=== PATIENT | female | born 1990 | race Caucasian/White ===

== ENCOUNTER 2024-04-02 05:59 | Day surgery (SDC) | payer OTHER ==
[~2024-04-02] VITALS: Ht 162.6 cm; Wt 55.3 kg
[2024-04-02] MEDS ORDERED: LR 1,000 ML IV SCH ×2 (06:15→08:35)
[2024-04-02 06:55] LABS: HEMATOCRIT 41.7 % (36.0-47.0); HEMOGLOBIN 14.1 g/dl (12.0-15.5); MEAN CORPUSCULAR HEMOGLOBIN 31.5 pg (27.0-33.0); MEAN CORPUSCULAR HGB CONC 33.8 g/dl (32.0-36.5); MEAN CORPUSCULAR VOLUME 93.1 fl (80.0-96.0); PLATELET COUNT, AUTOMATED 231 10^3/uL (150-450); RED BLOOD COUNT 4.48 10^6/uL (4.00-5.40); WHITE BLOOD COUNT 4.8 10^3/uL (4.0-10.0)
[2024-04-02] MEDS ORDERED: MIDAZOLAM INJ 2MG/2ML VIAL As Ordered ONE (06:59)
[2024-04-02] MEDS ORDERED: fentaNYL 100 MCG/2 ML INJECTION As Ordered ONE (07:03)
[2024-04-02] MEDS ORDERED: ROCURONIUM BROMIDE 50MG/5ML VIAL As Ordered ONE (07:08)
[2024-04-02] MEDS: SCOPOLAMINE 1MG TRANSDERMAL PATCH TOP ONE (07:21)
[2024-04-02] MEDS ORDERED: ACETAMINOPHEN 1000MG 100ML IV BAG As Ordered ONE (07:44)
[2024-04-02] MEDS ORDERED: SUGAMMADEX SODIUM 500 MG/5 ML VIAL (BRIDION) As Ordered ONE (07:50)
[2024-04-02] MEDS ORDERED: ONDANSETRON 4MG 2ML VIAL As Ordered ONE (07:50)
[2024-04-02] MEDS ORDERED: propofoL 200 MG/20 ML VIAL As Ordered ONE (07:50)
[2024-04-02] MEDS ORDERED: KETOROLAC 60MG 2ML VIAL As Ordered ONE (07:50)
[2024-04-02] MEDS ORDERED: ONDANSETRON 4MG 2ML VIAL IV PRN (08:35)
[2024-04-02] MEDS ORDERED: HYDROMORPHONE HCL 0.5 MG/ 0.5 ML SYRINGE IV PRN (08:35)
[2024-04-02] MEDS ORDERED: fentaNYL 100 MCG/2 ML INJECTION IV PRN (08:35)
[2024-04-02] MEDS: oxyCODONE 5MG TAB PO PRN (09:06)
[2024-04-02 10:15] VITALS: BP 98/60; TEMP 97; O2SAT 100
[2024-04-02] MEDS ORDERED: oxyCODONE 5MG TAB PO PRN (11:00)
[2024-04-02 13:07] LABS: Trichomonas vaginalis (AMP) NOT DETECTED (NEGATIVE)
[2024-04-02 13:31] LABS: GC DNA AMPLIFICATION NEGATIVE (NEGATIVE)
== END 2024-04-02 10:25 | disposition home or self-care (01) ==
LOC: M SDC 05:59
PROVIDERS: ATTEND Obstetrics & Gynecology
DX: Z30.2 Encounter for sterilization (principal)
CPT/HCPCS: 36415; 58661; 81025; 85027; 86780; 87661; 87810; 87850; 88302; G0123; J0131; J0665; J1100; J1885; J2250; J2405; J3010

== ENCOUNTER → 2025-08-19 | Outpatient (CLI) | payer OTHER | LOC: M WHC 10:15 | PROVIDERS: ATTEND Nurse Practitioner Family | DX: N64.4 Mastodynia (principal); R92.333 Mammographic heterogeneous density, bilateral breasts | CPT/HCPCS: 77066; G0279 ==